=== PATIENT | male | born 1945 | race Caucasian/White ===

== ENCOUNTER 2017-03-03 05:16 | Emergency (ER) | payer OTHER ==
[2017-03-03 05:23] VITALS: PULSE 80; RESP 16; O2SAT 96
[2017-03-03] MEDS ORDERED: NS 1,000 ML IV ONE (05:45)
--- NOTE | 2017-03-03 05:45 | EDPHY ---
H & P Stated Complaint: headache left sided HPI/ROS: HPI CHIEF COMPLAINT: Headache left-sided, burning scalp HISTORY OF PRESENT ILLNESS: This patient very pleasant 71-year-old male he denies having any significant medical history does not take any daily medications he presents emergency room with a headache on left side. He states deep inside. Started 2 days ago. No vomiting. No visual disturbance. No eye pain. Is located on the left side of his head and left neck. He states for the past 24 hours he noticed burning sensation to his scalp only on 1 side of his left scalp. Additionally tells me that he feels low been on his left neck. No midline neck pain. No fever. No chest pain no shortness of breath no vomiting. No eye pain. No nose pain. No tongue pain no numbness or tingling. Burning sensation left-sided scalp does not cross midline. Patient reports he has never had headache or pain like this before. Past Medical History: Denies medical history Past Surgical History: Denies surgical history Social History: He denies daily use of drugs alcohol tobacco products Family History: Noncontributory ROS REVIEW OF SYSTEMS: A comprehensive 10 point review of systems is otherwise negative aside from elements mentioned in the history of present illness. Exam Constitutional appears well nontoxic, triage nursing summary reviewed, vital signs reviewed, awake/alert. Eyes normal conjunctivae and sclera, EOMI, PERRLA. HENT normal inspection, atraumatic, moist mucus membranes, no epistaxis, neck supple/ no meningismus, no raccoon eyes. Respiratory clear to auscultation bilaterally, normal breath sounds, no respiratory distress, no wheezing. Cardiovascular rate normal, regular rhythm, no murmur, no edema, distal pulses normal. Gastrointestinal soft, non-tender, no rebound, no guarding, normal bowel sounds, no distension, no pulsatile mass. Genitourinary no CVA tenderness. Musculoskeletal no midline vertebral tenderness, full range of motion, no calf swelling, no tenderness of extremities, no meningismus, good pulses, neurovascularly intact. Skin on the left side of his chest anterior clavicular region and left anterior chest left anterior neck there appears to be a rash that is erythematous with vesicles that appears to be herpes zoster. I do not appreciate any shingles on his nose or scalp. However he does complain of burning pain on the left side of his scalp nothing on his forehead nothing on his nose and no eye pain. There is no Avery sign. Neurologic awake, alert and oriented x 3, AAOx3, moves all 4 extremities equally, motor intact, sensory intact, CN II-XII intact, normal cerebellar, normal vision, normal speech. Psychiatric normal mood/affect. Heme/Lymph/Immune no lymphadenopathy. Differential Diagnosis: Includes but is not limited to in a particular order intracranial bleed, brain tumor, migraine headache, tension headache, zoster Medical Decision Making: Plan for this patient basic blood draw, CT head given headache. However clinically most likely has zoster. Left chest left neck left shoulder zoster. Will most likely start on Valtrex. Pain medicine. Close follow-up with his primary care doctor however additionally I do recommend that if he develops high pain or zoster along his face nose are forehead he should seek further medical attention. He does not have assess time. Return precautions given. Close follow-up recommended. Re-evaluation: [id number]: This patient declined CT imaging of his head. I do feel that he has a reasonable explanation of his neck pain and headache and skin scalp sensitivity with shingles. Will be started on zoster medication. [place] for pain control, Valtrex for shingles. Close follow up his primary care doctor. Return precautions given. Understands return emergency room if develops eye pain, lesions on his face or nose. I discomfort, severe headache, vomiting or fever. Return to the ER. He understands. Source: Patient - Personal History Current Tetanus Diphtheria and Acellular Pertussis (TDAP): Yes - Medical/Surgical History Hx Asthma: No Hx Chronic Respiratory Disease: No Hx Diabetes: No Hx Cardiac Disease: No Hx Renal Disease: No Hx Cirrhosis: No Hx Alcoholism: No Hx HIV/AIDS: No Hx Splenectomy or Spleen Trauma: No Other PMH: none - Social History Smoking Status: Never smoked Constitutional: Initial Vital Signs Temperature (C) 36 C 03/03/17 05:20 Heart Rate 80 03/03/17 05:20 Respiratory Rate 16 03/03/17 05:20 Blood Pressure 132/76 H 03/03/17 05:20 O2 Sat (%) 96 03/03/17 05:20 O2 Delivery Mode Room Air Allergies/Adverse Reactions: No Known Allergies Allergy (Unverified 09/14/13 04:30) Home Medications: Medication Instructions Recorded Acyclovir 800 mg PO 5XD #35 tab 03/03/17 Hydrocodone/APAP 325 [[place] 1 - 2 tab PO Q4H PRN #10 tab 03/03/17 [id number]] Medical Decision Making - Data Points Laboratory Results: Laboratory Results 03/03/17 05:30 03/03/17 05:30 03/03/17 03/03/17 03/03/17 05:30 05:30 05:30 WBC 5.14 10^3/uL 10^3/uL (3.80-9.50) RBC 4.84 10^6/uL 10^6/uL (4.40-6.38) Hgb 14.8 g/dL g/dL (13.7-17.5) Hct 43.7 % % (40.0-51.0) MCV 90.3 fL fL (81.5-99.8) MCH 30.6 pg pg (27.9-34.1) MCHC 33.9 g/dL g/dL (32.4-36.7) RDW 13.8 % % (11.5-15.2) Plt Count 249 10^3/uL 10^3/uL (150-400) MPV 9.5 fL fL (8.7-11.7) Neut % (Auto) 51.5 % % (39.3-74.2) Lymph % (Auto) 31.9 % % (15.0-45.0) [place] % (Auto) 10.5 % % (4.5-13.0) Eos % (Auto) 4.9 % % (0.6-7.6) Baso % (Auto) 1.0 % % (0.3-1.7) Nucleat RBC Rel Count 0.0 % % (0.0-0.2) Absolute Neuts (auto) 2.65 10^3/uL 10^3/uL (1.70-6.50) Absolute Lymphs (auto) 1.64 10^3/uL 10^3/uL (1.00-3.00) Absolute Monos (auto) 0.54 10^3/uL 10^3/uL (0.30-0.80) Absolute Eos (auto) 0.25 10^3/uL 10^3/uL (0.03-0.40) Absolute Basos (auto) 0.05 10^3/uL 10^3/uL (0.02-0.10) Absolute Nucleated RBC 0.00 10^3/uL 10^3/uL (0-0.01) Immature Gran % 0.2 % % (0.0-1.1) Immature Gran # 0.01 10^3/uL 10^3/uL (0.00-0.10) PT 12.9 SEC SEC (12.0-15.0) INR 0.98 (0.83-1.16) Sodium 140 mEq/L mEq/L (134-144) Potassium 3.8 mEq/L mEq/L (3.5-5.2) Chloride 103 mEq/L mEq/L (97-110) Carbon Dioxide 28 mEq/l mEq/l (22-31) Anion Gap 9 mEq/L mEq/L (8-16) BUN 23 mg/dL mg/dL (7-23) Creatinine 0.9 mg/dL mg/dL (0.7-1.3) Estimated GFR > 60 Glucose 104 mg/dL H mg/dL (70-100) Calcium 9.8 mg/dL mg/dL (8.5-10.4) Medications Given: Discontinued Medications Sodium Chloride (Ns) 1,000 mls @ 0 mls/hr IV ONCE ONE; Wide Open PRN Reason: Protocol Stop: 03/03/17 05:46 Last Admin: 03/03/17 05:53 Dose: 1,000 mls Departure - Departure Disposition: Home, Routine, Self-Care Clinical Impression: Herpes zoster Qualifiers: Herpes zoster complications: without complications Qualified Code(s): B02.9 - Zoster without complications Condition: Good Instructions: Shingles (ED) Additional Instructions: 1. Return emergency room if you have any worsening symptoms questions concerns includes fever, worsening pain 2. If he develops rash on his face. He needs to return to the emergency room. Develops eye pain return see room fever. Please follow up with her primary care doctor. [place] for severe pain. Do not drive while taking this. Acyclovir for your shingles. Referrals: Abelino Louise [Primary Care Provider] - As per Instructions Prescriptions: Acyclovir 800 mg PO 5XD #35 tab Hydrocodone/APAP 5/325 [[place] 5/325] 1 - 2 tab PO Q4H PRN #10 tab PRN Reason: Pain, Moderate
[2017-03-03 05:50] LABS: % IMMATURE GRANULYOCYTES 0.2 % (0.0-1.1); ABSOLUTE IMMATURE GRANULOCYTES 0.01 10^3/uL (0.00-0.10); ADD DIFF? NO; ADD MORPH? NO; ADD SCAN? NO; ATYPICAL LYMPHOCYTE FLAG 0 (0-99); FRAGMENT RBC FLAG 0 (0-99); HEMATOCRIT 43.7 % (40.0-51.0); HEMOGLOBIN 14.8 g/dL (13.7-17.5); LEFT SHIFT FLG 0 (0-99); LIPEMIA HEMOLYSIS FLAG 90 (0-99); MEAN CELL HEMOGLOBIN 30.6 pg (27.9-34.1); MEAN CELL HEMOGLOBIN CONCENTR. 33.9 g/dL (32.4-36.7); MEAN CELL VOLUME 90.3 fL (81.5-99.8); MEAN PLATELET VOLUME 9.5 fL (8.7-11.7); PLATELET CLUMPS FLAG 10 (0-99); PLATELET COUNT 249 10^3/uL (150-400); RED BLOOD CELL COUNT 4.84 10^6/uL (4.40-6.38); RED CELL DISTRIBUTION WIDTH 13.8 % (11.5-15.2)
[2017-03-03 05:56] LABS: INR 0.98 (0.83-1.16); PROTIME(PATIENT) 12.9 SEC (12.0-15.0)
[2017-03-03 06:00] LABS: ANION GAP 9 mEq/L (8-16); CALCIUM 9.8 mg/dL (8.5-10.4); CARBON DIOXIDE 28 mEq/l (22-31); CHLORIDE 103 mEq/L (97-110); CREATININE 0.9 mg/dL (0.7-1.3); GLOMERULAR FILTRATION RATE > 60; GLUCOSE 104 mg/dL (70-100); POTASSIUM 3.8 mEq/L (3.5-5.2); SODIUM 140 mEq/L (134-144)
[2017-03-03] MEDS ORDERED: ACYCLOVIR 400 MG TAB PO ONE (06:18)
[2017-03-03 07:00] VITALS: BP 129/74; TEMP 97.9
== END 2017-03-03 06:59 | disposition home or self-care (01) ==
PROC: 3E0337Z Introduction of Electrolytic and Water Balance Substance into Peripheral Vein, Percutaneous Approach (ICD-10-PCS; principal; 2017-03-03)
DX: B02.9 Zoster without complications (principal); E86.0 Dehydration

== ENCOUNTER → 2017-09-05 | Outpatient (CLI) | payer OTHER | LOC: FIMAGING 15:39 | PROVIDERS: ATTEND Family Medicine | DX: K59.00 Constipation, unspecified (principal) ==